=== PATIENT | female | born 2000 | race Two or more races ===

== ENCOUNTER 2022-05-29 14:08 | Emergency (ER) | payer OTHER ==
[2022-05-29 14:14] VITALS: BP 119/69; PULSE 80; RESP 18; TEMP 97; BMI 24.1
[2022-05-29] MEDS ORDERED: IBUPROFEN 600 MG TABLET (FP) PO ONE ×2 (14:47→14:52)
== END 2022-05-29 15:45 | disposition home or self-care (01) ==
LOC: JERFT 14:08
DX: S82.842A Displaced bimalleolar fracture of left lower leg, initial encounter for closed fracture (principal); X50.0XXA Overexertion from strenuous movement or load, initial encounter; W18.49XA Other slipping, tripping and stumbling without falling, initial encounter
CPT/HCPCS: 73610-TC-LT-FY; 73610-TC-RT-FY; 73630-TC-LT; 99284-25